=== PATIENT | male | born 1970 | race Caucasian/White ===

== ENCOUNTER 2022-09-06 17:26 | Inpatient (IN) | payer OTHER ==
[2022-09-06] MEDS ORDERED: NALOXONE HCL 0.4 MG/ML VIAL IVPUSH ONE (17:49)
[2022-09-06] MEDS ORDERED: NALOXONE HCL 0.4 MG/ML VIAL ONE (17:51)
[2022-09-06] MEDS ORDERED: LACTATED RINGERS SOLUTION 1000 ML INFUS.BAG IV ONE ×2 (18:04→22:33)
[2022-09-06] MEDS ORDERED: THIAMINE HCL 200 MG/2 ML VIAL IVPB ONE (18:13)
[2022-09-06 18:42] LABS: VENOUS O2 SATURATION 61.5 % (70-80); VENOUS PCO2 51.4 mmHg (38-52); VENOUS PH 7.333 (7.310-7.410)
[2022-09-06 18:52] LABS: BASO % 0.6 % (0-2.0); HEMATOCRIT 38.6 % (35.4-49); HEMOGLOBIN 12.7 GM/dL (11.7-16.9); LYMPH % 23.1 % (8-40); MCH 27.8 pg (25.7-33.7); MEAN CELL VOLUME 84.2 fl (80-96); MEAN PLT VOLUME 8.6 fl (7.5-11.1); MONO % 9.6 % (3.8-10.2); NEUT % 63.7 % (42.8-82.8); PLATELET COUNT 199 10^3/uL (134-434); RBC 4.59 M/mm3 (4.00-5.60); RDW 14.3 % (11.9-15.9); WHITE BLOOD COUNT 6.6 K/mm3 (4.0-10.0)
[2022-09-06 19:25] LABS: CHLORIDE 103 mmol/L (98-107); POTASSIUM 4.2 mmol/L (3.5-5.1); SODIUM 140 mmol/L (136-145)
[2022-09-06 19:28] LABS: ANION GAP 9 MMOL/L (8-16); BLOOD UREA NITROGEN 11.2 mg/dL (7-18); CALCIUM 8.8 mg/dL (8.5-10.1); CO2 29 mmol/L (21-32)
[2022-09-06 19:30] LABS: ALBUMIN 3.7 g/dl (3.4-5.0); GLUCOSE,RANDOM 100 mg/dL (74-106); MAGNESIUM 2.3 mg/dL (1.8-2.4)
[2022-09-06 19:31] LABS: PHOSPHOROUS 4.1 mg/dL (2.5-4.9); SGOT/AST 35 U/L (15-37)
[2022-09-06 19:32] LABS: CREATININE 0.8 mg/dL (0.55-1.3); SGPT/ALT 37 U/L (13-61)
[2022-09-06 19:33] LABS: BILIRUBIN,TOTAL 0.5 mg/dL (0.2-1); TOT PROT 6.4 g/dl (6.4-8.2)
[2022-09-06 19:34] LABS: ALK PHOS 77 U/L (45-117)
[2022-09-07] MEDS ORDERED: LORazepam 1 MG TABLET PO PRN ×2 (00:29→07:59)
[2022-09-07] MEDS ORDERED: SODIUM CHLORIDE 1,000 ML IV SCH (00:30)
[2022-09-07] MEDS ORDERED: levETIRAcetam 500 MG TABLET (FP) PO ONE ×2 (00:33→00:52)
[2022-09-07] MEDS ORDERED: GABAPENTIN 300 MG CAPSULE ONE (00:53)
[2022-09-07] MEDS: GABAPENTIN 300 MG CAPSULE PO SCH ×4 (00:59→22:57)
[2022-09-07 07:38] VITALS: BMI 31.7
[2022-09-07 08:55] LABS: HEMOGLOBIN 11.2 GM/dL (11.7-16.9); MCH 27.9 pg (25.7-33.7); MEAN CELL VOLUME 84.5 fl (80-96); MEAN PLT VOLUME 8.6 fl (7.5-11.1); PLATELET COUNT 178 10^3/uL (134-434); RBC 4.02 M/mm3 (4.00-5.60); RDW 14.4 % (11.9-15.9); WHITE BLOOD COUNT 4.1 K/mm3 (4.0-10.0)
[2022-09-07 09:14] LABS: BLOOD UREA NITROGEN 8.6 mg/dL (7-18); CALCIUM 8.3 mg/dL (8.5-10.1); POTASSIUM 3.7 mmol/L (3.5-5.1)
[2022-09-07 09:17] LABS: CREATININE 0.6 mg/dL (0.55-1.3)
[2022-09-07 09:18] LABS: BILIRUBIN,TOTAL 0.4 mg/dL (0.2-1); TOT PROT 5.3 g/dl (6.4-8.2)
[2022-09-07] MEDS: levETIRAcetam 500 MG TABLET (FP) PO SCH ×2 (09:29→22:57)
[2022-09-07] MEDS: FOLIC ACID 1 MG TABLET (FP) PO SCH (09:29)
[2022-09-07] MEDS: DULoxetine HCL 30 MG CAPSULE.DR PO SCH (09:29)
[2022-09-07] MEDS: THIAMINE HCL 100 MG TABLET (FP) PO SCH (09:29)
[2022-09-07] MEDS: NICOTINE 21 MG/24 HOURS TOPICAL PATCH TD SCH (09:29)
[2022-09-07] MEDS: ENOXAPARIN NA (PORCINE) 40 MG/0.4 ML DISP.SYRIN SQ SCH (09:29)
[2022-09-07] MEDS: LORazepam 1 MG TABLET PO SCH ×3 (10:17→22:58)
[2022-09-07] MEDS: ATORVASTATIN CA 20 MG TABLET (FP) PO SCH (22:57)
[2022-09-08] MEDS: LORazepam 1 MG TABLET PO SCH ×4 (05:59→22:36)
[2022-09-08] MEDS: GABAPENTIN 300 MG CAPSULE PO SCH ×3 (06:26→22:36)
[2022-09-08 08:10] LABS: URINE APPEARANCE CLEAR; URINE BILIRUBIN NEGATIVE (NEGATIVE); URINE COLOR YELLOW; URINE GLUCOSE (UA) NEGATIVE (NEGATIVE); URINE KETONE NEGATIVE (NEGATIVE); URINE LEUK ESTERASE NEGATIVE (NEGATIVE); URINE NITRITE NEGATIVE (NEGATIVE); URINE PROTEIN NEGATIVE (NEGATIVE); URINE UROBILINOGEN 0.2 mg/dL (0.2-1.0)
[2022-09-08 09:01] LABS: BASO % 0.5 % (0-2.0); EOS % 4.5 % (0-4.5); HEMATOCRIT 35.5 % (35.4-49); HEMOGLOBIN 11.5 GM/dL (11.7-16.9); LYMPH % 26.6 % (8-40); MCH 27.8 pg (25.7-33.7); MCHC 32.5 g/dl (32.0-35.9); MEAN CELL VOLUME 85.7 fl (80-96); MEAN PLT VOLUME 8.5 fl (7.5-11.1); MONO % 7.4 % (3.8-10.2); PLATELET COUNT 160 10^3/uL (134-434); RBC 4.14 M/mm3 (4.00-5.60); RDW 13.9 % (11.9-15.9); WHITE BLOOD COUNT 4.8 K/mm3 (4.0-10.0)
[2022-09-08] MEDS: FOLIC ACID 1 MG TABLET (FP) PO SCH (10:22)
[2022-09-08] MEDS: DULoxetine HCL 30 MG CAPSULE.DR PO SCH (10:22)
[2022-09-08] MEDS: TAMSULOSIN HCL 0.4 MG CAP PO SCH (10:23)
[2022-09-08] MEDS: ENOXAPARIN NA (PORCINE) 40 MG/0.4 ML DISP.SYRIN SQ SCH (10:23)
[2022-09-08] MEDS: NICOTINE 21 MG/24 HOURS TOPICAL PATCH TD SCH (10:23)
[2022-09-08] MEDS: levETIRAcetam 500 MG TABLET (FP) PO SCH ×2 (10:23→22:36)
[2022-09-08] MEDS: THIAMINE HCL 100 MG TABLET (FP) PO SCH (10:30)
[2022-09-08] MEDS ORDERED: ONDANSETRON 4 MG/2 ML VIAL IVPUSH PRN (11:20)
[2022-09-08] MEDS: ATORVASTATIN CA 20 MG TABLET (FP) PO SCH (22:36)
[2022-09-08 23:23] LABS: URINE BARBITURATES NEGATIVE (NEGATIVE)
[2022-09-08 23:24] LABS: METHADONE, UR NEGATIVE (NEGATIVE); URINE AMPHETAMINES NEGATIVE (NEGATIVE)
[2022-09-08 23:27] LABS: COCAINE, UR POSITIVE (NEGATIVE); OPIATES, URI POSITIVE (NEGATIVE); PHENCYCLIDINE,URINE NEGATIVE (NEGATIVE); URINE BENZODIAZEPINES POSITIVE (NEGATIVE)
[2022-09-09] MEDS: GABAPENTIN 300 MG CAPSULE PO SCH ×3 (05:28→21:33)
[2022-09-09] MEDS: LORazepam 1 MG TABLET PO SCH ×4 (05:28→22:06)
[2022-09-09 07:40] LABS: BASO % 0.7 % (0-2.0); EOS % 2.9 % (0-4.5); HEMATOCRIT 38.9 % (35.4-49); HEMOGLOBIN 12.6 GM/dL (11.7-16.9); LYMPH % 27.7 % (8-40); MCH 27.5 pg (25.7-33.7); MCHC 32.4 g/dl (32.0-35.9); MEAN CELL VOLUME 84.9 fl (80-96); MEAN PLT VOLUME 8.7 fl (7.5-11.1); MONO % 7.9 % (3.8-10.2); NEUT % 60.8 % (42.8-82.8); PLATELET COUNT 182 10^3/uL (134-434); RBC 4.58 M/mm3 (4.00-5.60); RDW 13.3 % (11.9-15.9); WHITE BLOOD COUNT 5.3 K/mm3 (4.0-10.0)
[2022-09-09] MEDS: DULoxetine HCL 30 MG CAPSULE.DR PO SCH (09:49)
[2022-09-09] MEDS: THIAMINE HCL 100 MG TABLET (FP) PO SCH (09:49)
[2022-09-09] MEDS: TAMSULOSIN HCL 0.4 MG CAP PO SCH (09:50)
[2022-09-09] MEDS: ENOXAPARIN NA (PORCINE) 40 MG/0.4 ML DISP.SYRIN SQ SCH (09:50)
[2022-09-09] MEDS: NICOTINE 21 MG/24 HOURS TOPICAL PATCH TD SCH (09:50)
[2022-09-09] MEDS: levETIRAcetam 500 MG TABLET (FP) PO SCH ×2 (09:50→21:33)
[2022-09-09] MEDS: FOLIC ACID 1 MG TABLET (FP) PO SCH (09:50)
[2022-09-09] MEDS: ATORVASTATIN CA 20 MG TABLET (FP) PO SCH (21:33)
[2022-09-10] MEDS ORDERED: LORazepam 0.5 MG TABLET PO PRN
[2022-09-10] MEDS: GABAPENTIN 300 MG CAPSULE PO SCH ×3 (05:22→21:53)
[2022-09-10] MEDS: LORazepam 0.5 MG TABLET PO SCH ×4 (05:22→22:15)
[2022-09-10 08:59] LABS: BASO % 0.3 % (0-2.0); EOS % 0.7 % (0-4.5); HEMATOCRIT 40.5 % (35.4-49); HEMOGLOBIN 13.4 GM/dL (11.7-16.9); LYMPH % 19.6 % (8-40); MCH 27.4 pg (25.7-33.7); MEAN CELL VOLUME 83.1 fl (80-96); MEAN PLT VOLUME 8.8 fl (7.5-11.1); MONO % 6.7 % (3.8-10.2); NEUT % 72.7 % (42.8-82.8); PLATELET COUNT 192 10^3/uL (134-434); RBC 4.87 M/mm3 (4.00-5.60); RDW 13.7 % (11.9-15.9); WHITE BLOOD COUNT 7.2 K/mm3 (4.0-10.0)
[2022-09-10] MEDS: ENOXAPARIN NA (PORCINE) 40 MG/0.4 ML DISP.SYRIN SQ SCH (09:21)
[2022-09-10] MEDS: THIAMINE HCL 100 MG TABLET (FP) PO SCH (09:22)
[2022-09-10] MEDS: DULoxetine HCL 30 MG CAPSULE.DR PO SCH (09:22)
[2022-09-10] MEDS: levETIRAcetam 500 MG TABLET (FP) PO SCH ×2 (09:22→21:52)
[2022-09-10] MEDS: NICOTINE 21 MG/24 HOURS TOPICAL PATCH TD SCH (09:22)
[2022-09-10] MEDS: TAMSULOSIN HCL 0.4 MG CAP PO SCH (09:22)
[2022-09-10] MEDS: FOLIC ACID 1 MG TABLET (FP) PO SCH (09:22)
[2022-09-10] MEDS: ATORVASTATIN CA 20 MG TABLET (FP) PO SCH (21:53)
[2022-09-11] MEDS ORDERED: LORazepam 0.5 MG TABLET PO ONE (05:00)
[2022-09-11] MEDS: GABAPENTIN 300 MG CAPSULE PO SCH ×3 (06:23→23:05)
[2022-09-11] MEDS: TAMSULOSIN HCL 0.4 MG CAP PO SCH (08:20)
[2022-09-11] MEDS: ENOXAPARIN NA (PORCINE) 40 MG/0.4 ML DISP.SYRIN SQ SCH (10:24)
[2022-09-11] MEDS: levETIRAcetam 500 MG TABLET (FP) PO SCH ×2 (10:24→23:05)
[2022-09-11] MEDS: NICOTINE 21 MG/24 HOURS TOPICAL PATCH TD SCH (10:24)
[2022-09-11] MEDS: FOLIC ACID 1 MG TABLET (FP) PO SCH (10:25)
[2022-09-11] MEDS: DULoxetine HCL 30 MG CAPSULE.DR PO SCH (10:25)
[2022-09-11] MEDS: THIAMINE HCL 100 MG TABLET (FP) PO SCH (10:25)
[2022-09-11] MEDS ORDERED: LORazepam 1 MG TABLET PO PRN (14:29)
[2022-09-11 15:18] LABS: BASO % 0.3 % (0-2.0); EOS % 0.1 % (0-4.5); HEMATOCRIT 41.7 % (35.4-49); HEMOGLOBIN 13.7 GM/dL (11.7-16.9); LYMPH % 15.1 % (8-40); MCH 27.4 pg (25.7-33.7); MEAN PLT VOLUME 8.9 fl (7.5-11.1); MONO % 5.7 % (3.8-10.2); NEUT % 78.8 % (42.8-82.8); PLATELET COUNT 202 10^3/uL (134-434); RBC 5.02 M/mm3 (4.00-5.60); RDW 13.5 % (11.9-15.9); WHITE BLOOD COUNT 8.2 K/mm3 (4.0-10.0)
[2022-09-11 15:50] LABS: CALCIUM 9.4 mg/dL (8.5-10.1)
[2022-09-11 15:51] LABS: BLOOD UREA NITROGEN 8.8 mg/dL (7-18)
[2022-09-11 15:52] LABS: ALBUMIN 3.6 g/dl (3.4-5.0)
[2022-09-11 15:54] LABS: BILIRUBIN,TOTAL 0.4 mg/dL (0.2-1); CREATININE 0.7 mg/dL (0.55-1.3); TOT PROT 6.5 g/dl (6.4-8.2)
[2022-09-11] MEDS ORDERED: POTASSIUM CHLORIDE ORAL LIQUID 20 MEQ/15 ML PO ONE (17:21)
[2022-09-11] MEDS: POTASSIUM CHLORIDE ORAL LIQUID 20 MEQ/15 ML PO SCH (23:04)
[2022-09-11] MEDS: ATORVASTATIN CA 20 MG TABLET (FP) PO SCH (23:05)
[2022-09-11] MEDS: LORazepam 0.5 MG TABLET PO PRN (23:05)
[2022-09-12] MEDS: LORazepam 0.5 MG TABLET PO PRN (06:09)
[2022-09-12] MEDS: GABAPENTIN 300 MG CAPSULE PO SCH (06:09)
[2022-09-12] MEDS: ENOXAPARIN NA (PORCINE) 40 MG/0.4 ML DISP.SYRIN SQ SCH (10:09)
[2022-09-12] MEDS: DULoxetine HCL 30 MG CAPSULE.DR PO SCH (10:10)
[2022-09-12] MEDS: POTASSIUM CHLORIDE ORAL LIQUID 20 MEQ/15 ML PO SCH (10:10)
[2022-09-12] MEDS: TAMSULOSIN HCL 0.4 MG CAP PO SCH (10:10)
[2022-09-12] MEDS: NICOTINE 21 MG/24 HOURS TOPICAL PATCH TD SCH (10:10)
[2022-09-12] MEDS: THIAMINE HCL 100 MG TABLET (FP) PO SCH (10:10)
[2022-09-12] MEDS: levETIRAcetam 500 MG TABLET (FP) PO SCH (10:10)
[2022-09-12] MEDS: FOLIC ACID 1 MG TABLET (FP) PO SCH (10:10)
[2022-09-12 10:47] LABS: POTASSIUM 3.5 mmol/L (3.5-5.1)
[2022-09-12 10:50] LABS: CALCIUM 9.7 mg/dL (8.5-10.1)
[2022-09-12 10:51] LABS: ALBUMIN 3.4 g/dl (3.4-5.0); BASO % 0.2 % (0-2.0); BLOOD UREA NITROGEN 10.8 mg/dL (7-18); EOS % 0.7 % (0-4.5); HEMATOCRIT 41.9 % (35.4-49); HEMOGLOBIN 14.2 GM/dL (11.7-16.9); LYMPH % 30.2 % (8-40); MCH 27.5 pg (25.7-33.7); MCHC 33.8 g/dl (32.0-35.9); MEAN CELL VOLUME 81.4 fl (80-96); MEAN PLT VOLUME 8.6 fl (7.5-11.1); MONO % 7.2 % (3.8-10.2); NEUT % 61.7 % (42.8-82.8); PLATELET COUNT 197 10^3/uL (134-434); RBC 5.15 M/mm3 (4.00-5.60); RDW 13.8 % (11.9-15.9); WHITE BLOOD COUNT 7.4 K/mm3 (4.0-10.0)
[2022-09-12 10:54] LABS: CREATININE 0.6 mg/dL (0.55-1.3)
[2022-09-12 10:55] LABS: TOT PROT 6.4 g/dl (6.4-8.2)
[2022-09-12 10:56] LABS: BILIRUBIN,TOTAL 0.6 mg/dL (0.2-1)
[2022-09-12 11:21] LABS: MAGNESIUM 2.3 mg/dL (1.8-2.4)
[2022-09-12] MEDS ORDERED: amLODIPine BESYLATE 5 MG TABLET (FP) PO ONE (11:34)
[2022-09-12 11:35] VITALS: RESP 20; TEMP 98.6
[2022-09-12 12:28] VITALS: BP 116/90; PULSE 80
[2022-09-13] MEDS ORDERED: amLODIPine BESYLATE 5 MG TABLET (FP) PO SCH (10:00)
== END 2022-09-12 13:54 | disposition home or self-care (01) | DRG 53 ==
LOC: JER 17:26 → UNDOADMOB 22:59 → JERBED 22:59 → INTOOBSV 09-07 00:18 → OBSVTOIN 09-07 00:18 → JERBED 09-07 03:18 → J8W 09-07 03:18
PROVIDERS: ADMIT Internal Medicine; ATTEND Nurse Practitioner Family
DX: G40.909 Epilepsy, unspecified, not intractable, without status epilepticus (principal); R26.81 Unsteadiness on feet; F19.139 Other psychoactive substance abuse with withdrawal, unspecified; M62.82 Rhabdomyolysis; F17.210 Nicotine dependence, cigarettes, uncomplicated; R33.8 Other retention of urine
CPT/HCPCS: 36415; 70450-TC; 71045-TC-FY; 72125-TC; 80053; 80307; 81003; 82550; 82553; 82803; 83735; 84100; 84484; 85025; 85027; 93005; 93010; 97116-GP; 97161-GP; 99285-25; G0378

== ENCOUNTER 2022-09-24 13:23 | Inpatient (IN) | payer OTHER ==
[~2022-09-24 13:23] MED LIST: AMMONIUM LACTATE 12% LOTION 225 GM BOTTLE TP PRN; BENZOCAINE/MENTHOL (CHLORASEPTIC ) LOZENGE MM PRN; BENZONATATE 200 MG CAPSULE PO PRN; COLLOIDAL OATMEAL 1 BAR EACH TP PRN; LOPERAMIDE HCL 2 MG CAPSULE PO PRN; MAG HYDROX/AL HYDROX/SIMETH 30 ML UNIT-DOSE CUP PO PRN; MAGNESIUM HYDROX 2400MG/30ML ORAL SUSPENSION 30 ML CUP PO PRN; METHOCARBAMOL 500 MG TABLET PO PRN; NALOXONE HCL (KLOXXADO) 8 MG SPRAY NS PRN; NALOXONE HCL 0.4 MG/ML VIAL IVPUSH PRN; guaiFENesin 600 MG TABLET.ER (FP) PO PRN
[2022-09-24] MEDS: NICOTINE POLACRILEX 4 MG GUM BUC PRN (15:50)
[2022-09-24] MEDS: levETIRAcetam 500 MG TABLET (FP) PO SCH (21:26)
[2022-09-24] MEDS: MELATONIN 5 MG TABLETS PO SCH (21:26)
[2022-09-24] MEDS: THIAMINE HCL 100 MG TABLET (FP) PO SCH (21:26)
[2022-09-24] MEDS: ACETAMINOPHEN 325 MG TABLET (FP) PO PRN (21:27)
[2022-09-25] MEDS: hydrOXYzine PAMOATE 25 MG CAPSULE (FP) PO PRN (06:45)
[2022-09-25] MEDS: TAMSULOSIN HCL 0.4 MG CAP PO SCH (09:38)
[2022-09-25] MEDS: levETIRAcetam 500 MG TABLET (FP) PO SCH ×2 (09:38→21:25)
[2022-09-25] MEDS: amLODIPine BESYLATE 10 MG TABLET (FP) PO SCH (09:38)
[2022-09-25] MEDS: PRENATAL VITAMINS W/ FOLIC ACID TABLET (FP) PO SCH (09:38)
[2022-09-25] MEDS: NICOTINE 21 MG/24 HOURS TOPICAL PATCH TD SCH (09:38)
[2022-09-25] MEDS: NICOTINE POLACRILEX 4 MG GUM BUC PRN (09:39)
[2022-09-25] MEDS ORDERED: BUPRENORPHINE HCL 150 MCG, BUPRENORPHINE HCL 75 MCG BC PRN (14:16)
[2022-09-25] MEDS ORDERED: BUPRENORPHINE HCL 150 MCG, BUPRENORPHINE HCL 75 MCG BC ONE (14:16)
[2022-09-25] MEDS ORDERED: cloNIDine HCL 0.1 MG TABLET PO ONE (14:16)
[2022-09-25] MEDS ORDERED: BISMUTH SUBSALICYLATE 262 MG/15 ML BTL PO PRN (14:21)
[2022-09-25] MEDS ORDERED: DICYCLOMINE HCL 10 MG CAPSULE PO PRN (14:21)
[2022-09-25] MEDS ORDERED: GABAPENTIN 100 MG CAPSULE PO ONE (16:02)
[2022-09-25] MEDS ORDERED: cloNIDine HCL 0.1 MG TABLET PO PRN (18:16)
[2022-09-25] MEDS: GABAPENTIN 100 MG CAPSULE PO SCH (21:25)
[2022-09-25] MEDS: MELATONIN 5 MG TABLETS PO SCH (21:26)
[2022-09-25] MEDS: BACLOFEN 10 MG TABLET (FP) PO SCH (21:26)
[2022-09-25] MEDS: THIAMINE HCL 100 MG TABLET (FP) PO SCH (21:26)
[2022-09-26] MEDS ORDERED: BUPRENORPHINE HCL 150 MCG, BUPRENORPHINE HCL 75 MCG BC PRN
[2022-09-26] MEDS: BUPRENORPHINE HCL 150 MCG, BUPRENORPHINE HCL 75 MCG BC SCH ×2 (06:22→18:18)
[2022-09-26] MEDS: BACLOFEN 10 MG TABLET (FP) PO SCH ×3 (06:22→21:11)
[2022-09-26] MEDS: GABAPENTIN 100 MG CAPSULE PO SCH ×3 (06:22→21:12)
[2022-09-26] MEDS: levETIRAcetam 500 MG TABLET (FP) PO SCH ×2 (09:10→21:12)
[2022-09-26] MEDS: PRENATAL VITAMINS W/ FOLIC ACID TABLET (FP) PO SCH (09:10)
[2022-09-26] MEDS: NICOTINE 21 MG/24 HOURS TOPICAL PATCH TD SCH (09:10)
[2022-09-26] MEDS: TAMSULOSIN HCL 0.4 MG CAP PO SCH (09:10)
[2022-09-26] MEDS: amLODIPine BESYLATE 10 MG TABLET (FP) PO SCH (09:10)
[2022-09-26] MEDS: NICOTINE POLACRILEX 4 MG GUM BUC PRN (09:11)
[2022-09-26] MEDS: THIAMINE HCL 100 MG TABLET (FP) PO SCH (21:12)
[2022-09-26] MEDS: MELATONIN 5 MG TABLETS PO SCH (21:12)
[2022-09-27] MEDS: BUPRENORPHINE HCL 450 MCG FILM BC SCH ×2 (07:20→17:10)
[2022-09-27] MEDS: BACLOFEN 10 MG TABLET (FP) PO SCH ×3 (07:27→21:46)
[2022-09-27] MEDS: GABAPENTIN 100 MG CAPSULE PO SCH ×3 (07:27→21:46)
[2022-09-27] MEDS: amLODIPine BESYLATE 10 MG TABLET (FP) PO SCH (09:45)
[2022-09-27] MEDS: levETIRAcetam 500 MG TABLET (FP) PO SCH ×2 (09:45→21:46)
[2022-09-27] MEDS: PRENATAL VITAMINS W/ FOLIC ACID TABLET (FP) PO SCH (09:45)
[2022-09-27] MEDS: TAMSULOSIN HCL 0.4 MG CAP PO SCH (09:45)
[2022-09-27] MEDS: NICOTINE 21 MG/24 HOURS TOPICAL PATCH TD SCH (09:45)
[2022-09-27] MEDS: NICOTINE POLACRILEX 4 MG GUM BUC PRN ×2 (12:31→18:25)
[2022-09-27] MEDS: MELATONIN 5 MG TABLETS PO SCH (21:45)
[2022-09-27] MEDS: THIAMINE HCL 100 MG TABLET (FP) PO SCH (21:46)
[2022-09-27] MEDS: ACETAMINOPHEN 325 MG TABLET (FP) PO PRN (21:46)
[2022-09-28] MEDS: GABAPENTIN 100 MG CAPSULE PO SCH ×3 (06:19→21:29)
[2022-09-28] MEDS: BUPRENORPHINE/NALOXONE 4 MG/1 MG FILM PACKET SL SCH ×2 (06:19→17:21)
[2022-09-28] MEDS: BACLOFEN 10 MG TABLET (FP) PO SCH ×3 (06:19→21:30)
[2022-09-28] MEDS: amLODIPine BESYLATE 10 MG TABLET (FP) PO SCH (09:45)
[2022-09-28] MEDS: PRENATAL VITAMINS W/ FOLIC ACID TABLET (FP) PO SCH (09:45)
[2022-09-28] MEDS: NICOTINE 21 MG/24 HOURS TOPICAL PATCH TD SCH (09:45)
[2022-09-28] MEDS: TAMSULOSIN HCL 0.4 MG CAP PO SCH (09:46)
[2022-09-28] MEDS: levETIRAcetam 500 MG TABLET (FP) PO SCH ×2 (09:46→21:29)
[2022-09-28] MEDS: ACETAMINOPHEN 325 MG TABLET (FP) PO PRN ×2 (12:39→21:29)
[2022-09-28] MEDS: NICOTINE POLACRILEX 4 MG GUM BUC PRN (12:40)
[2022-09-28] MEDS: ALBUTEROL SO4 HFA INHALER IH PRN (19:18)
[2022-09-28] MEDS: MELATONIN 5 MG TABLETS PO SCH (21:28)
[2022-09-28] MEDS: THIAMINE HCL 100 MG TABLET (FP) PO SCH (21:28)
[2022-09-29] MEDS ORDERED: BUPRENORPHINE/NALOXONE 8 MG/2 MG FILM PACKET SL ONE ×2 (06:00→18:00)
[2022-09-29] MEDS: GABAPENTIN 100 MG CAPSULE PO SCH (06:38)
[2022-09-29] MEDS: BACLOFEN 10 MG TABLET (FP) PO SCH ×3 (06:39→21:02)
[2022-09-29] MEDS: PRENATAL VITAMINS W/ FOLIC ACID TABLET (FP) PO SCH (09:47)
[2022-09-29] MEDS: amLODIPine BESYLATE 10 MG TABLET (FP) PO SCH (09:47)
[2022-09-29] MEDS: levETIRAcetam 500 MG TABLET (FP) PO SCH ×2 (09:47→21:02)
[2022-09-29] MEDS: TAMSULOSIN HCL 0.4 MG CAP PO SCH (09:47)
[2022-09-29] MEDS: NICOTINE 21 MG/24 HOURS TOPICAL PATCH TD SCH (10:05)
[2022-09-29] MEDS ORDERED: MELATONIN 5 MG TABLETS PO SCH (11:37)
[2022-09-29] MEDS: cloNIDine HCL 0.1 MG TABLET PO SCH ×2 (11:44→21:02)
[2022-09-29] MEDS: ONDANSETRON *ODT* 4 MG TABLET SL PRN (11:44)
[2022-09-29] MEDS: NICOTINE POLACRILEX 4 MG GUM BUC PRN ×2 (13:01→18:35)
[2022-09-29] MEDS: GABAPENTIN 300 MG CAPSULE PO SCH ×2 (13:20→21:03)
[2022-09-29] MEDS: THIAMINE HCL 100 MG TABLET (FP) PO SCH (21:03)
[2022-09-29] MEDS ORDERED: SUVOREXANT 10 MG TABLET PO PRN (22:00)
[2022-09-30] MEDS: GABAPENTIN 300 MG CAPSULE PO SCH ×3 (05:49→21:13)
[2022-09-30] MEDS: BUPRENORPHINE/NALOXONE 8 MG/2 MG FILM PACKET SL SCH ×3 (05:51→21:15)
[2022-09-30] MEDS: BACLOFEN 10 MG TABLET (FP) PO SCH ×3 (05:51→21:13)
[2022-09-30] MEDS: amLODIPine BESYLATE 10 MG TABLET (FP) PO SCH (09:37)
[2022-09-30] MEDS: TAMSULOSIN HCL 0.4 MG CAP PO SCH (09:37)
[2022-09-30] MEDS: PRENATAL VITAMINS W/ FOLIC ACID TABLET (FP) PO SCH (09:37)
[2022-09-30] MEDS: NICOTINE 21 MG/24 HOURS TOPICAL PATCH TD SCH (09:37)
[2022-09-30] MEDS: levETIRAcetam 500 MG TABLET (FP) PO SCH ×2 (09:37→21:13)
[2022-09-30] MEDS: cloNIDine HCL 0.1 MG TABLET PO SCH ×2 (09:37→21:13)
[2022-09-30] MEDS: ONDANSETRON *ODT* 4 MG TABLET SL PRN (09:38)
[2022-09-30] MEDS: NICOTINE POLACRILEX 4 MG GUM BUC PRN ×2 (09:39→16:58)
[2022-09-30] MEDS: THIAMINE HCL 100 MG TABLET (FP) PO SCH (21:12)
[2022-09-30] MEDS: IBUPROFEN 400 MG TABLET (FP) PO PRN (21:14)
[2022-10-01] MEDS: GABAPENTIN 300 MG CAPSULE PO SCH ×3 (06:05→21:24)
[2022-10-01] MEDS: BACLOFEN 10 MG TABLET (FP) PO SCH ×3 (06:05→21:24)
[2022-10-01] MEDS: BUPRENORPHINE/NALOXONE 8 MG/2 MG FILM PACKET SL SCH ×3 (06:05→21:25)
[2022-10-01] MEDS: PRENATAL VITAMINS W/ FOLIC ACID TABLET (FP) PO SCH (09:58)
[2022-10-01] MEDS: ACETAMINOPHEN 325 MG TABLET (FP) PO PRN (09:58)
[2022-10-01] MEDS: amLODIPine BESYLATE 10 MG TABLET (FP) PO SCH (09:58)
[2022-10-01] MEDS: NICOTINE 21 MG/24 HOURS TOPICAL PATCH TD SCH (09:58)
[2022-10-01] MEDS: levETIRAcetam 500 MG TABLET (FP) PO SCH ×2 (09:58→21:24)
[2022-10-01] MEDS: cloNIDine HCL 0.1 MG TABLET PO SCH ×2 (09:58→21:24)
[2022-10-01] MEDS: NICOTINE POLACRILEX 4 MG GUM BUC PRN ×2 (10:00→17:09)
[2022-10-01] MEDS: TAMSULOSIN HCL 0.4 MG CAP PO SCH (12:39)
[2022-10-01] MEDS: THIAMINE HCL 100 MG TABLET (FP) PO SCH (21:24)
[2022-10-02] MEDS: BACLOFEN 10 MG TABLET (FP) PO SCH ×3 (06:26→21:19)
[2022-10-02] MEDS: BUPRENORPHINE/NALOXONE 8 MG/2 MG FILM PACKET SL SCH ×3 (06:26→21:19)
[2022-10-02] MEDS: GABAPENTIN 300 MG CAPSULE PO SCH ×3 (06:26→21:18)
[2022-10-02] MEDS: POLYETHYLENE GLYCOL (HEALTHYLAX) 3350 17 GM PACKET PO PRN (06:38)
[2022-10-02] MEDS: NICOTINE POLACRILEX 4 MG GUM BUC PRN ×3 (06:39→19:12)
[2022-10-02] MEDS: PRENATAL VITAMINS W/ FOLIC ACID TABLET (FP) PO SCH (09:47)
[2022-10-02] MEDS: amLODIPine BESYLATE 10 MG TABLET (FP) PO SCH (09:47)
[2022-10-02] MEDS: NICOTINE 21 MG/24 HOURS TOPICAL PATCH TD SCH (09:47)
[2022-10-02] MEDS: cloNIDine HCL 0.1 MG TABLET PO SCH ×2 (09:47→21:18)
[2022-10-02] MEDS: TAMSULOSIN HCL 0.4 MG CAP PO SCH (09:47)
[2022-10-02] MEDS: levETIRAcetam 500 MG TABLET (FP) PO SCH ×2 (09:47→21:19)
[2022-10-02] MEDS ORDERED: SENNOSIDES 8.6MG TABLET (FP) PO PRN (10:30)
[2022-10-02] MEDS: DOCUSATE SODIUM 100 MG CAPSULE (FP) PO PRN (12:57)
[2022-10-02] MEDS: ACETAMINOPHEN 325 MG TABLET (FP) PO PRN (12:59)
[2022-10-02] MEDS: SUVOREXANT 10 MG TABLET PO PRN (21:18)
[2022-10-02] MEDS: THIAMINE HCL 100 MG TABLET (FP) PO SCH (21:18)
[2022-10-03] MEDS: BUPRENORPHINE/NALOXONE 8 MG/2 MG FILM PACKET SL SCH ×3 (05:55→21:14)
[2022-10-03] MEDS: BACLOFEN 10 MG TABLET (FP) PO SCH ×3 (05:56→21:13)
[2022-10-03] MEDS: GABAPENTIN 300 MG CAPSULE PO SCH ×3 (05:56→21:13)
[2022-10-03] MEDS: NICOTINE POLACRILEX 4 MG GUM BUC PRN ×2 (08:35→17:54)
[2022-10-03] MEDS: amLODIPine BESYLATE 10 MG TABLET (FP) PO SCH (09:51)
[2022-10-03] MEDS: cloNIDine HCL 0.1 MG TABLET PO SCH ×2 (09:51→21:13)
[2022-10-03] MEDS: TAMSULOSIN HCL 0.4 MG CAP PO SCH (09:51)
[2022-10-03] MEDS: PRENATAL VITAMINS W/ FOLIC ACID TABLET (FP) PO SCH (09:51)
[2022-10-03] MEDS: levETIRAcetam 500 MG TABLET (FP) PO SCH ×2 (09:51→21:13)
[2022-10-03] MEDS: DOCUSATE SODIUM 100 MG CAPSULE (FP) PO PRN (09:52)
[2022-10-03] MEDS: NICOTINE 21 MG/24 HOURS TOPICAL PATCH TD SCH (09:53)
[2022-10-03] MEDS ORDERED: AZITHROMYCIN 250 MG TABLET PO ONE (10:30)
[2022-10-03] MEDS: THIAMINE HCL 100 MG TABLET (FP) PO SCH (21:12)
[2022-10-03] MEDS: SUVOREXANT 10 MG TABLET PO PRN (21:13)
[2022-10-04] MEDS: BUPRENORPHINE/NALOXONE 8 MG/2 MG FILM PACKET SL SCH ×3 (05:58→21:48)
[2022-10-04] MEDS: BACLOFEN 10 MG TABLET (FP) PO SCH ×3 (05:59→21:46)
[2022-10-04] MEDS: GABAPENTIN 300 MG CAPSULE PO SCH ×3 (05:59→21:47)
[2022-10-04] MEDS: NICOTINE POLACRILEX 4 MG GUM BUC PRN ×2 (06:00→15:31)
[2022-10-04] MEDS: ALBUTEROL SO4 HFA INHALER IH PRN ×2 (08:12→18:54)
[2022-10-04] MEDS: ACETAMINOPHEN 325 MG TABLET (FP) PO PRN (09:21)
[2022-10-04] MEDS: TAMSULOSIN HCL 0.4 MG CAP PO SCH (09:22)
[2022-10-04] MEDS: AZITHROMYCIN 250 MG TABLET PO SCH (09:22)
[2022-10-04] MEDS: NICOTINE 21 MG/24 HOURS TOPICAL PATCH TD SCH (09:22)
[2022-10-04] MEDS: levETIRAcetam 500 MG TABLET (FP) PO SCH ×2 (09:22→21:47)
[2022-10-04] MEDS: PRENATAL VITAMINS W/ FOLIC ACID TABLET (FP) PO SCH (09:22)
[2022-10-04] MEDS: cloNIDine HCL 0.1 MG TABLET PO SCH ×2 (09:22→21:46)
[2022-10-04] MEDS: amLODIPine BESYLATE 10 MG TABLET (FP) PO SCH (09:22)
[2022-10-04] MEDS ORDERED: BISACODYL 10 MG SUPP.RECT PR ONE (12:00)
[2022-10-04] MEDS: BUDESONIDE/FORMETEROL FUMARATE 80/4.5 mcg INHALER IH SCH ×2 (12:40→21:47)
[2022-10-04] MEDS: guaiFENesin 600 MG TABLET.ER (FP) PO SCH ×2 (12:41→21:47)
[2022-10-04] MEDS: IBUPROFEN 600 MG TABLET (FP) PO PRN (18:56)
[2022-10-04] MEDS: THIAMINE HCL 100 MG TABLET (FP) PO SCH (21:46)
[2022-10-05] MEDS: ACETAMINOPHEN 325 MG TABLET (FP) PO PRN (01:06)
[2022-10-05] MEDS: ALBUTEROL SO4 HFA INHALER IH PRN ×2 (01:06→10:05)
[2022-10-05] MEDS: POLYETHYLENE GLYCOL (HEALTHYLAX) 3350 17 GM PACKET PO PRN (01:06)
[2022-10-05] MEDS: hydrOXYzine PAMOATE 25 MG CAPSULE (FP) PO PRN (01:07)
[2022-10-05] MEDS: BACLOFEN 10 MG TABLET (FP) PO SCH ×3 (06:30→21:37)
[2022-10-05] MEDS: GABAPENTIN 300 MG CAPSULE PO SCH ×3 (06:30→21:37)
[2022-10-05] MEDS: BUPRENORPHINE/NALOXONE 8 MG/2 MG FILM PACKET SL SCH ×3 (06:30→21:36)
[2022-10-05] MEDS: DOCUSATE SODIUM 100 MG CAPSULE (FP) PO PRN (06:33)
[2022-10-05] MEDS: NICOTINE 10 MG CARTRIDGE (INHALER) IH PRN ×2 (06:37→12:39)
[2022-10-05] MEDS: PRENATAL VITAMINS W/ FOLIC ACID TABLET (FP) PO SCH (10:02)
[2022-10-05] MEDS: guaiFENesin 600 MG TABLET.ER (FP) PO SCH ×2 (10:03→21:37)
[2022-10-05] MEDS: cloNIDine HCL 0.1 MG TABLET PO SCH ×2 (10:03→21:38)
[2022-10-05] MEDS: TAMSULOSIN HCL 0.4 MG CAP PO SCH (10:03)
[2022-10-05] MEDS: amLODIPine BESYLATE 10 MG TABLET (FP) PO SCH (10:03)
[2022-10-05] MEDS: NICOTINE 21 MG/24 HOURS TOPICAL PATCH TD SCH (10:03)
[2022-10-05] MEDS: BUDESONIDE/FORMETEROL FUMARATE 80/4.5 mcg INHALER IH SCH ×2 (10:03→21:35)
[2022-10-05] MEDS: levETIRAcetam 500 MG TABLET (FP) PO SCH ×2 (10:03→21:38)
[2022-10-05] MEDS: AZITHROMYCIN 250 MG TABLET PO SCH (10:03)
[2022-10-05] MEDS: IBUPROFEN 600 MG TABLET (FP) PO PRN (10:05)
[2022-10-05] MEDS: ALBUTEROL SO4 2.5/IPRATROPIUM 0.5 INH SOL 3 ML VIAL.NEB. NEB PRN (12:40)
[2022-10-05] MEDS ORDERED: BENZONATATE 200 MG CAPSULE PO PRN (14:45)
[2022-10-05] MEDS ORDERED: LACTULOSE 20 GM/30 ML UDC (FOR ORAL USE ONLY) PO ONE ×2 (16:47→22:00)
[2022-10-05] MEDS: THIAMINE HCL 100 MG TABLET (FP) PO SCH (21:36)
[2022-10-05] MEDS: SUVOREXANT 10 MG TABLET PO PRN (21:37)
[2022-10-06] MEDS: ALBUTEROL SO4 2.5/IPRATROPIUM 0.5 INH SOL 3 ML VIAL.NEB. NEB PRN ×3 (01:01→18:03)
[2022-10-06] MEDS: BUPRENORPHINE/NALOXONE 8 MG/2 MG FILM PACKET SL SCH ×3 (06:17→21:26)
[2022-10-06] MEDS: BACLOFEN 10 MG TABLET (FP) PO SCH ×3 (06:17→21:25)
[2022-10-06] MEDS: GABAPENTIN 300 MG CAPSULE PO SCH ×3 (06:17→21:25)
[2022-10-06] MEDS: IBUPROFEN 600 MG TABLET (FP) PO PRN (06:18)
[2022-10-06] MEDS: levETIRAcetam 500 MG TABLET (FP) PO SCH ×2 (10:11→21:25)
[2022-10-06] MEDS: cloNIDine HCL 0.1 MG TABLET PO SCH ×2 (10:11→21:25)
[2022-10-06] MEDS: AZITHROMYCIN 250 MG TABLET PO SCH (10:11)
[2022-10-06] MEDS: PRENATAL VITAMINS W/ FOLIC ACID TABLET (FP) PO SCH (10:11)
[2022-10-06] MEDS: NICOTINE 21 MG/24 HOURS TOPICAL PATCH TD SCH (10:11)
[2022-10-06] MEDS: guaiFENesin 600 MG TABLET.ER (FP) PO SCH ×2 (10:11→21:25)
[2022-10-06] MEDS: amLODIPine BESYLATE 10 MG TABLET (FP) PO SCH (10:11)
[2022-10-06] MEDS: BUDESONIDE/FORMETEROL FUMARATE 80/4.5 mcg INHALER IH SCH ×2 (10:12→21:27)
[2022-10-06] MEDS: TAMSULOSIN HCL 0.4 MG CAP PO SCH (10:12)
[2022-10-06] MEDS: NICOTINE POLACRILEX 4 MG GUM BUC PRN ×2 (10:14→16:59)
[2022-10-06] MEDS ORDERED: SODIUM PHOSPHATE/NA BIPHOS 133 ML ENEMA RC ONE (12:33)
[2022-10-06] MEDS: THIAMINE HCL 100 MG TABLET (FP) PO SCH (21:25)
[2022-10-06] MEDS: SUVOREXANT 10 MG TABLET PO PRN (21:25)
[2022-10-06] MEDS: ACETAMINOPHEN 325 MG TABLET (FP) PO PRN (21:26)
[2022-10-07] MEDS: ALBUTEROL SO4 HFA INHALER IH PRN ×2 (06:06→14:16)
[2022-10-07] MEDS: GABAPENTIN 300 MG CAPSULE PO SCH ×3 (06:07→21:12)
[2022-10-07] MEDS: BACLOFEN 10 MG TABLET (FP) PO SCH ×3 (06:08→21:12)
[2022-10-07] MEDS: NICOTINE 10 MG CARTRIDGE (INHALER) IH PRN (06:09)
[2022-10-07] MEDS: BUPRENORPHINE/NALOXONE 8 MG/2 MG FILM PACKET SL SCH ×3 (06:09→21:14)
[2022-10-07] MEDS: ACETAMINOPHEN 325 MG TABLET (FP) PO PRN (07:39)
[2022-10-07] MEDS: ALBUTEROL SO4 2.5/IPRATROPIUM 0.5 INH SOL 3 ML VIAL.NEB. NEB PRN ×2 (09:00→17:36)
[2022-10-07] MEDS: PRENATAL VITAMINS W/ FOLIC ACID TABLET (FP) PO SCH (10:10)
[2022-10-07] MEDS: levETIRAcetam 500 MG TABLET (FP) PO SCH ×2 (10:10→21:12)
[2022-10-07] MEDS: guaiFENesin 600 MG TABLET.ER (FP) PO SCH ×2 (10:10→21:12)
[2022-10-07] MEDS: BUDESONIDE/FORMETEROL FUMARATE 80/4.5 mcg INHALER IH SCH ×2 (10:10→21:12)
[2022-10-07] MEDS: amLODIPine BESYLATE 10 MG TABLET (FP) PO SCH (10:11)
[2022-10-07] MEDS: AZITHROMYCIN 250 MG TABLET PO SCH (10:11)
[2022-10-07] MEDS: cloNIDine HCL 0.1 MG TABLET PO SCH ×2 (10:11→21:12)
[2022-10-07] MEDS: TAMSULOSIN HCL 0.4 MG CAP PO SCH (10:11)
[2022-10-07] MEDS: NICOTINE 21 MG/24 HOURS TOPICAL PATCH TD SCH (10:12)
[2022-10-07] MEDS: NICOTINE POLACRILEX 4 MG GUM BUC PRN ×2 (10:13→14:17)
[2022-10-07] MEDS: THIAMINE HCL 100 MG TABLET (FP) PO SCH (21:11)
[2022-10-07] MEDS: SUVOREXANT 10 MG TABLET PO PRN (21:13)
[2022-10-08] MEDS: hydrOXYzine PAMOATE 25 MG CAPSULE (FP) PO PRN (00:58)
[2022-10-08] MEDS: NICOTINE POLACRILEX 4 MG GUM BUC PRN ×2 (01:00→09:19)
[2022-10-08] MEDS: GABAPENTIN 300 MG CAPSULE PO SCH (06:01)
[2022-10-08] MEDS: BUPRENORPHINE/NALOXONE 8 MG/2 MG FILM PACKET SL SCH (06:01)
[2022-10-08] MEDS: IBUPROFEN 400 MG TABLET (FP) PO PRN (06:02)
[2022-10-08] MEDS: BACLOFEN 10 MG TABLET (FP) PO SCH (06:02)
[2022-10-08] MEDS: BUDESONIDE/FORMETEROL FUMARATE 80/4.5 mcg INHALER IH SCH (09:15)
[2022-10-08] MEDS: AZITHROMYCIN 250 MG TABLET PO SCH (09:16)
[2022-10-08] MEDS: TAMSULOSIN HCL 0.4 MG CAP PO SCH (09:16)
[2022-10-08] MEDS: amLODIPine BESYLATE 10 MG TABLET (FP) PO SCH (09:16)
[2022-10-08] MEDS: cloNIDine HCL 0.1 MG TABLET PO SCH (09:16)
[2022-10-08] MEDS: guaiFENesin 600 MG TABLET.ER (FP) PO SCH (09:16)
[2022-10-08] MEDS: PRENATAL VITAMINS W/ FOLIC ACID TABLET (FP) PO SCH (09:16)
[2022-10-08] MEDS: levETIRAcetam 500 MG TABLET (FP) PO SCH (09:16)
[2022-10-08 09:20] VITALS: BP 157/87; PULSE 95; RESP 20; TEMP 96.7
== END 2022-10-08 09:52 | disposition home or self-care (01) | DRG 772 ==
LOC: YASAS 13:23 → Y3W 13:26
PROVIDERS: ADMIT Allergy & Immunology; ATTEND Psychiatry & Neurology Pain Medicine
PROC: HZ42ZZZ Group Counseling for Substance Abuse Treatment, Cognitive-Behavioral (ICD-10-PCS; principal; 2022-09-24)
DX: F11.20 Opioid dependence, uncomplicated (principal); F14.20 Cocaine dependence, uncomplicated; F13.20 Sedative, hypnotic or anxiolytic dependence, uncomplicated; F17.210 Nicotine dependence, cigarettes, uncomplicated; I10 Essential (primary) hypertension; J40 Bronchitis, not specified as acute or chronic; K59.00 Constipation, unspecified; N40.0 Benign prostatic hyperplasia without lower urinary tract symptoms; R56.9 Unspecified convulsions
CPT/HCPCS: 26055; 71046-TC-FY; 87635; 94640; J0475; Q0162